=== PATIENT | female | born 1950 | race Caucasian/White ===

== ENCOUNTER → 2016-09-20 | Outpatient (REF) | payer MEDICARE ==
[2016-09-20 13:11] LABS: ALBUMIN 3.8 GM/DL (3.2-5.2); ALBUMIN/GLOBULIN RATIO 1.36 (1.00-1.93); ALKALINE PHOSPHATASE 131 U/L (45-117); ALT/SGPT 22 U/L (12-78); ANION GAP 7 MEQ/L (8-16); AST/SGOT 12 U/L (15-37); BILIRUBIN,TOTAL 0.4 MG/DL (0.2-1.0); BLOOD UREA NITROGEN 13 MG/DL (7-18); CALCIUM LEVEL 9.2 MG/DL (8.8-10.2); CARBON DIOXIDE LEVEL 31 MEQ/L (21-32); CHLORIDE LEVEL 105 MEQ/L (98-107); CHOLESTEROL LEVEL 257 MG/DL (<200); GLOMERULAR FILTRATION RATE > 60.0 (>45); GLUCOSE, FASTING 115 MG/DL (80-110); POTASSIUM SERUM 4.6 MEQ/L (3.5-5.1); SODIUM LEVEL 143 MEQ/L (136-145); TOTAL PROTEIN 6.6 GM/DL (6.4-8.2); TRIGLYCERIDES LEVEL 188 MG/DL (<150)
== END ==
LOC: M SFHCADAM 08:53
PROVIDERS: ATTEND Physician Assistant Medical
DX: E78.5 Hyperlipidemia, unspecified (principal); R73.01 Impaired fasting glucose

== ENCOUNTER → 2016-09-26 | Outpatient (CLI) | payer MEDICARE ==
--- NOTE | 2016-09-26 14:57 | REP ---
Clinical: Chronic knee pain. Technique: AP and lateral. Findings: Moderate to early advanced tricompartmental osteoarthritic degenerative changes are appreciated. No obvious effusion. No acute fracture or dislocation. Impression: Moderate to early advanced tricompartmental osteoarthritic changes. Signed by Vick Harper MD 09/26/2016 02:49 P
== END ==
LOC: M ADAMS 13:54
PROVIDERS: ATTEND Physician Assistant Medical
DX: M25.561 Pain in right knee (principal); M17.11 Unilateral primary osteoarthritis, right knee

== ENCOUNTER → 2016-10-26 | Outpatient (REF) | payer MEDICARE ==
[2016-10-26 14:17] LABS: BLOOD UREA NITROGEN 13 MG/DL (7-18); GLOMERULAR FILTRATION RATE > 60.0 (>45)
== END ==
LOC: M LABDRAW1 13:36
PROVIDERS: ATTEND Physician Assistant Surgical
DX: M17.11 Unilateral primary osteoarthritis, right knee (principal)

== ENCOUNTER → 2018-01-22 | Outpatient (REF) | payer MEDICARE ==
[2018-01-22 12:17] LABS: BASO # 0.1 10^3/uL (0.0-0.2); BASO % 1.4 % (0.0-1.0); EOS # 0.2 10^3/uL (0.0-0.50); EOS % 3.3 % (0.0-3.0); HEMATOCRIT 39.6 % (36.0-47.0); HEMOGLOBIN 12.7 g/dl (12.0-15.5); IMMATURE GRANULOCYTE % 0.5 % (0-3.0); LYMPH # 1.3 10^3/uL (1.5-4.5); LYMPH % 20.9 % (24.0-44.0); MEAN CORPUSCULAR HEMOGLOBIN 27.7 pg (27.0-33.0); MEAN CORPUSCULAR HGB CONC 32.1 g/dl (32.0-36.5); MEAN CORPUSCULAR VOLUME 86.5 fl (80.0-96.0); MONO # 0.6 10^3/uL (0.0-0.8); MONO % 9.4 % (0.0-5.0); NEUTROPHILS # 4.1 10^3/uL (1.8-7.7); NEUTROPHILS % 64.5 % (36.0-66.0); PLATELET COUNT, AUTOMATED 295 10^3/uL (150-450); RED BLOOD COUNT 4.58 10^6/uL (4.00-5.40); RED CELL DISTRIBUTION WIDTH 14.5 % (11.5-14.5); WHITE BLOOD COUNT 6.3 10^3/uL (4.0-10.0)
[2018-01-22 12:58] LABS: TOTAL 25(OH) VITAMIN D 44.1 NG/ML (30.0-100.0)
[2018-01-22 13:18] LABS: ALBUMIN 3.7 GM/DL (3.2-5.2); ALBUMIN/GLOBULIN RATIO 1.16 (1.00-1.93); ALKALINE PHOSPHATASE 143 U/L (45-117); ALT/SGPT 25 U/L (12-78); ANION GAP 8 MEQ/L (8-16); AST/SGOT 15 U/L (7-37); BILIRUBIN,TOTAL 0.4 MG/DL (0.2-1.0); BLOOD UREA NITROGEN 12 MG/DL (7-18); CARBON DIOXIDE LEVEL 28 MEQ/L (21-32); CHLORIDE LEVEL 106 MEQ/L (98-107); CHOLESTEROL LEVEL 189 MG/DL (<200); CREATININE FOR GFR 0.77 MG/DL (0.55-1.30); GLOMERULAR FILTRATION RATE > 60.0 (>45); GLUCOSE, FASTING 109 MG/DL (70-100); HDL CHOLESTEROL 45 MG/DL (>40); LDL CHOLESTEROL 102.8 MG/DL (<100); NON-HDL-C 144 MG/DL; POTASSIUM SERUM 4.3 MEQ/L (3.5-5.1); SODIUM LEVEL 142 MEQ/L (136-145); TOTAL PROTEIN 6.9 GM/DL (6.4-8.2); TRIGLYCERIDES LEVEL 206 MG/DL (<150)
== END ==
LOC: M SFHCADAM 08:51
DX: E78.5 Hyperlipidemia, unspecified (principal); R73.01 Impaired fasting glucose
CPT/HCPCS: 84443

== ENCOUNTER → 2018-02-11 | Outpatient (REF) | payer MEDICARE | LOC: M SFHCLERA 02-12 12:23 | DX: C44.519 Basal cell carcinoma of skin of other part of trunk (principal) | CPT/HCPCS: 88305 ==

== ENCOUNTER → 2019-02-11 | Outpatient (REF) | payer MEDICARE ==
[2019-02-11 19:26] LABS: BASO # 0.1 10^3/uL (0.0-0.2); BASO % 0.7 % (0.0-1.0); EOS # 0.1 10^3/uL (0.0-0.50); EOS % 1.7 % (0.0-3.0); HEMOGLOBIN 13.7 g/dl (12.0-15.5); LYMPH # 1.5 10^3/uL (1.5-4.5); LYMPH % 17.9 % (24.0-44.0); MEAN CORPUSCULAR HGB CONC 31.9 g/dl (32.0-36.5); MEAN CORPUSCULAR VOLUME 94.3 fl (80.0-96.0); MONO # 0.8 10^3/uL (0.0-0.8); MONO % 9.3 % (0.0-5.0); NEUTROPHILS # 5.8 10^3/uL (1.8-7.7); PLATELET COUNT, AUTOMATED 255 10^3/uL (150-450); RED BLOOD COUNT 4.56 10^6/uL (4.00-5.40); WHITE BLOOD COUNT 8.3 10^3/uL (4.0-10.0)
[2019-02-11 19:36] LABS: ALBUMIN 3.7 GM/DL (3.2-5.2); ALT/SGPT 25 U/L (12-78); BILIRUBIN,TOTAL 0.3 MG/DL (0.2-1.0); BLOOD UREA NITROGEN 16 MG/DL (7-18); CARBON DIOXIDE LEVEL 29 MEQ/L (21-32); CHLORIDE LEVEL 110 MEQ/L (98-107); CHOLESTEROL LEVEL 182 MG/DL (<200); CHOLESTEROL RISK RATIO 3.872 (<5); CREATININE FOR GFR 0.73 MG/DL (0.55-1.30); GLOMERULAR FILTRATION RATE > 60.0 (>45); GLUCOSE, FASTING 83 MG/DL (70-100); HDL CHOLESTEROL 47 MG/DL (>40); LDL CHOLESTEROL 110 MG/DL (<100); NON-HDL-C 135 MG/DL; POTASSIUM SERUM 4.5 MEQ/L (3.5-5.1); SODIUM LEVEL 143 MEQ/L (136-145); TOTAL PROTEIN 6.6 GM/DL (6.4-8.2); TRIGLYCERIDES LEVEL 127 MG/DL (<150)
[2019-02-11 19:58] LABS: HEMOGLOBIN A1c 6.2 %
[2019-02-11 20:07] LABS: MALB URINE SIEMENS 10.4 MG/L; MAU/CREAT RATIO 7.1 MCG/MG (0.0-30.0)
== END ==
LOC: M SFHCADAM 16:31
PROVIDERS: ATTEND Physician Assistant Medical
DX: E78.5 Hyperlipidemia, unspecified (principal); R73.01 Impaired fasting glucose; E66.01 Morbid (severe) obesity due to excess calories; M81.0 Age-related osteoporosis without current pathological fracture

== ENCOUNTER → 2020-02-27 | Outpatient (REF) | payer MEDICARE ==
[~2020-02-27] MED LIST: ATOR1TAB19 PO; COLLAGEN PO; CVS1CHW13 PO; D31000TA2 PO; ECOT81TA5 PO; MULTTAB86 PO
[2020-02-27 14:48] LABS: BASO # 0.1 10^3/uL (0.0-0.2); BASO % 0.9 % (0.0-1.0); EOS # 0.2 10^3/uL (0.0-0.5); EOS % 3.1 % (0.0-3.0); HEMATOCRIT 41.7 % (36.0-47.0); HEMOGLOBIN 13.5 g/dl (12.0-15.5); LYMPH # 1.1 10^3/uL (1.5-5.0); LYMPH % 20.4 % (24.0-44.0); MEAN CORPUSCULAR HEMOGLOBIN 29.1 pg (27.0-33.0); MEAN CORPUSCULAR HGB CONC 32.4 g/dl (32.0-36.5); MEAN CORPUSCULAR VOLUME 89.9 fl (80.0-96.0); MONO # 0.6 10^3/uL (0.0-0.8); NEUTROPHILS # 3.6 10^3/uL (1.5-8.5); NEUTROPHILS % 65.1 % (36.0-66.0); PLATELET COUNT, AUTOMATED 234 10^3/uL (150-450); RED BLOOD COUNT 4.64 10^6/uL (4.00-5.40); WHITE BLOOD COUNT 5.5 10^3/uL (4.0-10.0)
[2020-02-27 15:08] LABS: BLOOD UREA NITROGEN 14 MG/DL (7-18); CARBON DIOXIDE LEVEL 30 MEQ/L (21-32); CHLORIDE LEVEL 105 MEQ/L (98-107); CREATININE FOR GFR 0.72 MG/DL (0.55-1.30); GLOMERULAR FILTRATION RATE > 60.0 (>45); GLUCOSE, FASTING 105 MG/DL (70-100); POTASSIUM SERUM 4.2 MEQ/L (3.5-5.1); SODIUM LEVEL 140 MEQ/L (136-145)
[2020-02-27 15:09] LABS: ALBUMIN 3.7 GM/DL (3.2-5.2); ALT/SGPT 26 U/L (12-78); BILIRUBIN,TOTAL 0.5 MG/DL (0.2-1.0); CALCIUM LEVEL 9.2 MG/DL (8.8-10.2); CHOLESTEROL LEVEL 193 MG/DL (<200); CHOLESTEROL RISK RATIO 4.386 (<5); HDL CHOLESTEROL 44 MG/DL (>40); LDL CHOLESTEROL 113 MG/DL (<100); NON-HDL-C 149 MG/DL; TOTAL PROTEIN 6.5 GM/DL (6.4-8.2); TRIGLYCERIDES LEVEL 178 MG/DL (<150)
[2020-02-27 16:46] LABS: HEMOGLOBIN A1c 6.2 %
== END ==
LOC: M LABDRWAD 12:46
PROVIDERS: ATTEND Physician Assistant Medical
DX: E78.5 Hyperlipidemia, unspecified (principal); M19.90 Unspecified osteoarthritis, unspecified site; R73.09 Other abnormal glucose; E66.01 Morbid (severe) obesity due to excess calories
CPT/HCPCS: 36415; 80053; 80061; 83036; 84443; 85025; G0463

== ENCOUNTER → 2020-03-10 | Outpatient (CLI) | payer MEDICARE ==
--- NOTE | 2020-03-10 10:25 | REPMRS ---
Patient History The patient states she has not had a clinical breast exam in over a year. Family history of ovarian cancer at age 63 in daughter. 3D TOMOSYNTHESIS WAS PERFORMED. [facility] lifetime risk for breast cancer is 2.2%. VOLPARA DENSITY B. Digital Woman Screen Mammo: March 10, 2020 - Exam #: [id number] Bilateral CC and MLO view(s) were taken. Technologist: RT Jil Prior study comparison: February 25, 2018, bilateral digital woman screen mammo performed at [facility]. January 31, 2016, left breast digital mammo diagnostic unilateral, performed at [facility]. FINDINGS: There are scattered fibroglandular densities. There is a fairly symmetric fibroglandular pattern in both breasts. There has been no interval development of masses, areas of architectural distortion or clusters of microcalcifications typical of malignancy. The previously identified cyst in the left breast is again noted. Assessment: BI-RADS/ACR category 2 mammogram. Benign Findings. Recommendation Routine screening mammogram of both breasts in 1 year (for women over age 40). This mammogram was interpreted with the aid of an FDA-approved computer-aided dectection system. Electronically Signed By: Jean Price MD 03/10/20 3101
== END ==
LOC: M WHC 09:12
PROVIDERS: ATTEND Physician Assistant Medical
DX: Z12.31 Encounter for screening mammogram for malignant neoplasm of breast (principal)

== ENCOUNTER → 2020-05-04 | Outpatient (CLI) | payer MEDICARE ==
[2020-05-04 09:53] LABS: HEMATOCRIT 42.2 % (36.0-47.0); HEMOGLOBIN 13.1 g/dl (12.0-15.5); MEAN CORPUSCULAR HEMOGLOBIN 28.1 pg (27.0-33.0); MEAN CORPUSCULAR VOLUME 90.6 fl (80.0-96.0); PLATELET COUNT, AUTOMATED 288 10^3/uL (150-450); RED BLOOD COUNT 4.66 10^6/uL (4.00-5.40); WHITE BLOOD COUNT 6.4 10^3/uL (4.0-10.0)
--- NOTE | 2020-05-04 10:10 | REP ---
INDICATION: RT KNEE OSTEOARTHRITIS LABS FIRST. COMPARISON: None. TECHNIQUE: Two views FINDINGS: Lung glynn are adequately inflated. There is some linear scar or platelike atelectasis at the left CP angle on the frontal view. I see no pleural effusion, lateral pleural thickening, dense consolidation or pulmonary nodule. No visible mass. The heart is not enlarged and there is no vascular redistribution or edema. The aorta is mildly tortuous but normal for age. Airway is intact. No widening of the mediastinum. Bony thorax shows small marginal osteophytes in the lower thoracic spine but no compression fracture or destructive lesions in the spine and adjacent bony chest structures. No free air under the diaphragm IMPRESSION: Some minimal linear atelectasis or scar left CP angle. No cardiomegaly, edema, effusion or acute infiltrate <Electronically signed by Dalton Neely > 05/04/20 1004
[2020-05-04 10:16] LABS: INR 0.88; PROTHROMBIN TIME 12.1 SECONDS (12.5-14.3)
[2020-05-04 10:26] LABS: ALBUMIN 3.7 GM/DL (3.2-5.2); ALT/SGPT 22 U/L (12-78); BILIRUBIN,TOTAL 0.4 MG/DL (0.2-1.0); BLOOD UREA NITROGEN 12 MG/DL (7-18); CARBON DIOXIDE LEVEL 30 MEQ/L (21-32); CHLORIDE LEVEL 107 MEQ/L (98-107); CREATININE FOR GFR 0.78 MG/DL (0.55-1.30); GLOMERULAR FILTRATION RATE > 60.0 (>45); GLUCOSE, FASTING 116 MG/DL (70-100); POTASSIUM SERUM 4.2 MEQ/L (3.5-5.1); SODIUM LEVEL 142 MEQ/L (136-145); TOTAL PROTEIN 6.5 GM/DL (6.4-8.2)
[2020-05-04 10:27] LABS: ERYTHROCYTE SEDIMENTATION RATE 17 mm/hr (0-30)
--- NOTE | 2020-05-04 14:09 | ECGEPIP ---
[facility] Test Date: 2020-05-04 Pat Name: CL BARAJAS Department: Room: - Gender: Female Card Hanger: : 1950 Requested By: Scarlett Rucker Order Number: [id number] Reading MD: Jaron Jones Measurements Intervals [place] Rate: 78 P: 68 VT: 165 QRS: 7 QRSD: 84 T: 70 QT: 361 QTc: 412 Interpretive Statements SINUS RHYTHM Inferior Q waves of uncertain significance Comparison tracing not on file Baseline artifact Electronically Signed on 05-04-2020 14:09:30 EST by Jaron Jones
== END ==
LOC: M LAB 09:06
PROVIDERS: ATTEND Orthopaedic Surgery
DX: Z01.818 Encounter for other preprocedural examination (principal); M17.11 Unilateral primary osteoarthritis, right knee

== ENCOUNTER → 2020-05-14 | Outpatient (CLI) | payer MEDICARE | LOC: M LABSMTC 10:25 | PROVIDERS: ATTEND Anesthesiology | DX: Z01.812 Encounter for preprocedural laboratory examination (principal); Z20.828 Contact with and (suspected) exposure to other viral communicable diseases ==

== ENCOUNTER 2020-05-19 11:01 | Day surgery (SDC) | payer MEDICARE ==
--- NOTE | 2020-05-17 08:08 | HPE ---
DATE OF ANTICIPATED ADMISSION: 05/19/2020 PHYSICIAN: Dr. Chaim Arellano CHIEF COMPLAINT: Right knee pain. HISTORY OF PRESENT ILLNESS: The patient is a pleasant 70-year-old female with progressively worsening right knee pain and stiffness. She has failed to improve with conservative treatment. She has elected for surgery for her continued symptoms. She has pain with weightbearing activities and her activities of daily living. X-rays of her knee are notable for advanced osteoarthritis of the right knee joint. She is consented for a right total knee arthroplasty by Dr. Chaim Arellano. Medical optimization was performed by Dr. Chan office. ALLERGIES: None. CURRENT MEDICATIONS: - atorvastatin 20 mg once a day. - Tylenol 325 mg as needed. - baby aspirin once a day. - calcium and citrate D, fish oil, and vitamin D supplement. PAST MEDICAL HISTORY: High cholesterol. PAST SURGICAL HISTORY: 1. Knee arthroscopy. 2. Hysterectomy. SOCIAL HISTORY: She is retired. Has two drinks a day and quit smoking 20 years ago. FAMILY HISTORY: Non-contributory. REVIEW OF SYSTEMS: This patient denies chest pain, heart palpitations, cough, wheezing, difficulty breathing, and shortness of breath. She denies abdominal pain, nausea, vomiting, diarrhea, or constipation. She denies recent upper respiratory infection or urinary tract infection symptoms. She does complain of persistent pain in her right knee. PHYSICAL EXAMINATION: GENERAL: She is a well-nourished, well-developed, and in no acute distress alert female patient. She ambulates with a moderate limp favoring her right lower extremity. She is not using assistive devices. VITAL SIGNS: She is 5 feet 2 inches, weight 191.8 pounds, temperature 97.2, blood pressure 136/84, pulse 78, respirations 16. NECK: Supple without adenopathy or jugular venous distention. There were no carotid bruits appreciated upon auscultation. LUNGS: Clear to auscultation without rales or wheeze throughout. HEART: Regular rate and rhythm. ABDOMEN: Bowel sounds were present. EXTREMITIES: Examination of the knee revealed intact skin. She had decreased range of motion due to pain and stiffness. The limb is neurovascularly intact. LABORATORY DATA: ProTime 12.1. INR 0.88. Glucose 116, BUN 12, creatinine 0.78. Sodium 142, potassium 4.2. CBC showed mean corpuscular hemoglobin concentration of 31 and otherwise within normal limits with a sed rate of 17. IMAGING: Chest x-ray and EKG were not available. IMPRESSION: Symptomatic osteoarthritis of the right knee joint. PLAN: Consented for a right total knee arthroplasty by Dr. Chaim Arellano pending chest x-ray and EKG. MTDD
[~2020-05-19] VITALS: Ht 157.5 cm; Wt 89.4 kg
[~2020-05-19 11:01] MED LIST changes: +ACETAMINOPHEN 500 MG TAB PO ONE; +LR 1,000 ML IV ONE; +MIDAZOLAM INJ 2MG/2ML VIAL (J2250 PER 1MG) IV PRN; +ceFAZolin SOD 2 GM in IV 1 EA IV ONE; +fentaNYL 100 MCG/2 ML INJECTION (J3010) IV PRN
[2020-05-19] MEDS ORDERED: TRANEXAMIC ACID 100 MG/ML 10ML VIAL As Ordered ONE (12:29)
[2020-05-19] MEDS ORDERED: BUPIVACAINE HCL 0.25% 10ML VIAL As Ordered ONE (12:29)
[2020-05-19] MEDS ORDERED: ceFAZolin 1GM VIAL (J0690 PER 500MG) As Ordered ONE (12:29)
[2020-05-19] MEDS ORDERED: BUPIVACAINE LIPOSOME/PF 1.3% 20ML VIAL (13.3MG/ML)(EXPAREL)(C9290 PER1MG) As Ordered ONE (12:30)
[2020-05-19] MEDS ORDERED: EPINEPHrine INJ 1 MG/ML 1ML AMP As Ordered ONE (12:30)
[2020-05-19] MEDS ORDERED: MIDAZOLAM INJ 2MG/2ML VIAL (J2250 PER 1MG) As Ordered ONE ×2 (12:53→13:25)
[2020-05-19] MEDS ORDERED: fentaNYL 100 MCG/2 ML INJECTION (J3010) As Ordered ONE ×2 (12:54→13:25)
[2020-05-19] MEDS ORDERED: LIDOCAINE 2% 100MG/5ML SDV (FOR ANES.) As Ordered ONE (12:57)
[2020-05-19] MEDS ORDERED: dexameTHASONE 4 MG/ML 1ML VIAL (J1100 PER 1MG) As Ordered ONE ×2 (12:58→13:31)
[2020-05-19] MEDS ORDERED: propofoL 500 MG/50 ML VIAL As Ordered ONE (12:59)
[2020-05-19] MEDS ORDERED: ROPIvacaine 0.5% 30ML INJECTION (J2795 PER 1MG) XX ONE (14:15)
[2020-05-19] MEDS ORDERED: LIDOCAINE 1% MDV 20ML VIAL XX ONE (14:15)
[2020-05-19] MEDS ORDERED: dexameTHASONE 10MG/1ML VIAL PRES.FREE (J1100 PER 1MG) XX ONE (14:15)
[2020-05-19] MEDS ORDERED: METOCLOPRAMIDE INJ 10MG/2ML VIAL (J2765 PER 1) As Ordered ONE (14:41)
[2020-05-19] MEDS ORDERED: ONDANSETRON 4MG/2ML VIAL As Ordered ONE (14:41)
[2020-05-19] MEDS ORDERED: propofoL 200 MG/20 ML VIAL As Ordered ONE (15:24)
[2020-05-19] MEDS ORDERED: ONDANSETRON 4MG/2ML VIAL IV PRN ×2 (16:15)
[2020-05-19] MEDS ORDERED: oxyCODONE 5MG TAB PO PRN (16:15)
[2020-05-19] MEDS ORDERED: HYDROMORPHONE HCL 0.5 MG/ 0.5 ML SYRINGE (J1170 PER 1) IV PRN (16:15)
[2020-05-19] MEDS ORDERED: ACETAMINOPHEN TAB 650MG DOSE (2X325MG) PO PRN (16:15)
[2020-05-19] MEDS ORDERED: fentaNYL 100 MCG/2 ML INJECTION (J3010) IV PRN (16:15)
[2020-05-19] MEDS ORDERED: MORPHINE 4 MG/ML 1ML VIAL/SYRINGE (J2270) IV PRN (16:15)
[2020-05-19] MEDS ORDERED: LR 1,000 ML IV SCH ×2 (16:15)
[2020-05-19] MEDS ORDERED: PERCOCET 5MG/325MG TAB PO PRN (16:15)
--- NOTE | 2020-05-19 16:52 | REP ---
INDICATION: POST OP COMPARISON: None. TECHNIQUE: Portable AP and lateral views obtained. FINDINGS: There is placement of a total knee prosthesis which appears to be in good position. The osseous structures are intact and well aligned. Metallic skin abbey are seen anteriorly. IMPRESSION: Metallic knee prosthesis in good position. <Electronically signed by Jean Price > 05/19/20 [id number]
[2020-05-19 18:15] VITALS: BP 156/81
[2020-05-19] MEDS ORDERED: PROMETHAZINE INJ 25 MG/ML VIAL (J2550) IV SCH (18:15)
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
[2020-05-19 18:45] VITALS: BP 155/84
[2020-05-19] MEDS ORDERED: MORPHINE 2 MG/ML 1ML VIAL (J2270) IV PRN (18:45)
[2020-05-19] MEDS ORDERED: PROMETHAZINE INJ 25 MG/ML VIAL (J2550) IV ONE (18:45)
[2020-05-19] MEDS: ASPIRIN 81 MG ENTERIC TAB PO SCH (20:05)
[2020-05-19 20:45] VITALS: BP 145/84
[2020-05-19 22:00] VITALS: BP 142/81
[2020-05-19] MEDS: ceFAZolin SOD 2 GM in IV 1 EA IV SCH (22:10)
[2020-05-20 00:07] VITALS: O2SAT 96
[2020-05-20 02:00] VITALS: BP 148/72
[2020-05-20] MEDS: PERCOCET 5MG/325MG TAB PO PRN ×3 (02:37→15:55)
[2020-05-20 06:00] VITALS: BP 159/86
[2020-05-20 06:01] LABS: HEMATOCRIT 35.9 % (36.0-47.0); HEMOGLOBIN 11.4 g/dl (12.0-15.5); MEAN CORPUSCULAR HEMOGLOBIN 28.4 pg (27.0-33.0); MEAN CORPUSCULAR HGB CONC 31.8 g/dl (32.0-36.5); MEAN CORPUSCULAR VOLUME 89.3 fl (80.0-96.0); PLATELET COUNT, AUTOMATED 262 10^3/uL (150-450); RED BLOOD COUNT 4.02 10^6/uL (4.00-5.40); WHITE BLOOD COUNT 15.8 10^3/uL (4.0-10.0)
[2020-05-20] MEDS: ceFAZolin SOD 2 GM in IV 1 EA IV SCH ×2 (06:09→14:34)
[2020-05-20 06:24] LABS: ALT/SGPT 24 U/L (12-78); BILIRUBIN,TOTAL 0.3 MG/DL (0.2-1.0); BLOOD UREA NITROGEN 15 MG/DL (7-18); CALCIUM LEVEL 8.6 MG/DL (8.8-10.2); CARBON DIOXIDE LEVEL 27 MEQ/L (21-32); CHLORIDE LEVEL 105 MEQ/L (98-107); CREATININE FOR GFR 0.82 MG/DL (0.55-1.30); GLOMERULAR FILTRATION RATE > 60.0 (>45); GLUCOSE, FASTING 188 MG/DL (70-100); POTASSIUM SERUM 4.2 MEQ/L (3.5-5.1); SODIUM LEVEL 138 MEQ/L (136-145); TOTAL PROTEIN 5.7 GM/DL (6.4-8.2)
[2020-05-20] MEDS ORDERED: PERC5TAB12 PO (06:43)
[2020-05-20] MEDS ORDERED: ECOT81TA5 PO (06:43)
--- NOTE | 2020-05-20 07:05 | RO ---
DATE OF OPERATION: 05/19/2020 PREOPERATIVE DIAGNOSIS: Right knee varus tricompartmental degenerative arthritis. POSTOPERATIVE DIAGNOSIS: Right knee varus tricompartmental degenerative arthritis. PROCEDURE: Right total knee arthroplasty using a size 6 narrow cemented cruciate-retaining femoral component with a size 6 tibial tray cemented with a 6 mm rotating platform, polyethylene insert and 35 mm polyethylene button. All components were cemented. Prosthesis was made by [employer]. It was an Attune knee. SURGEON: Chaim Arellano MD WAITER/WAITRESS FIRST CLASS: Ms. Susan Norman ANESTHESIA: Spinal with right femoral nerve block. COMPLICATIONS: None. ESTIMATED BLOOD LOSS: 20 cc SPECIMENS: Joint surface. PROCEDURE: Antibiotics were given intravenously preoperatively and a right femoral nerve block and then a spinal anesthetic was induced, and tourniquet placed in the right upper thigh and not inflated. Right lower extremity was carefully prepped and draped in the usual sterile fashion and then the leg was elevated. After appropriate time-out, the tourniquet was inflated to 250 mmHg for 59 minutes. A medial parapatellar arthrotomy was performed. Bovie cautery was used to coagulate crossing vessels. Subperiosteal dissection on the proximal medial and the proximal lateral tibial plateaus was performed and then we everted the patella and flexed the knee, and dbrided the ACL. The drill was placed down the center of the femoral canal followed by intermedullary margarita. The distal femoral cutting jig was set at 5 degrees of valgus at 9 mm resection level. The block was pinned into position. The distal femoral cut was performed. AP sizing jig measured for a size 6 femoral component. Three degrees of external rotation were dialed in and then the pins were applied and the 4 in 1 block applied in the anterior and posterior chamfer cuts were performed taking great care to protect the surrounding soft tissues. The sulcus osteotomy jig was applied and the sulcus osteotomy performed and checked with the rasp. We exposed the proximal tibia, used the extramedullary jig to estimate being parallel to the mechanical access of the tibia referencing first off the medial tibial condyle which was quite eroded. We measured it 2 mm from that level. The block was pinned into position. A secondary check with extramedullary margarita confirmed that we appeared to be parallel to the mechanical axis. We thus performed the proximal tibial osteotomy. he lamina sewer bricklayer was then placed medially and we performed a completion medial meniscectomy and dbrided posterior medial osteophytes. We then placed the lamina sewer bricklayer laterally and performed a completion medial meniscectomy and dbrided the posterior medial osteophytes. Once that had been concluded, the spacer block was trialed. The 6 mm spacer actually fit quite nicely with good symmetry with varus and valgus and AP stress testing both in flexion and in extension but it was slightly snug, so I did go back and make sure I removed all the osteophytes medially and I did put the tibial block back on and ran the saw blade over the medial tibial condyle once again. It did take a lot of kerf of saw blades worth of bone from this area because it was so sclerotic initially and may have scythed somewhat. I placed the spacer block in at this point and a 6 mm spacer still fit nicely but it was definitely less tight medially and I felt quite satisfied with the overall alignment at this point. I then exposed the proximal tibia size for a size number 6 tibial tray. It was pinned into position followed by the reamer and broach and a trial of polyethylene was placed. Then the trial femoral component was applied. I brought the knee into extension, everted the patella, performed a patellar osteotomy sized for a 35 patellar component. Level was drilled, trial placed. Patellar femoral tracking was anatomic. There was a little bit of tendency for some posterior roll block at extreme flexion. I did release a little bit of the PCL with a Bovie and a small lopez elevator. I drilled the lug holes for the femur at this point, removed all the trial components. Marija Susan Emerson mixed cement on the back table as I copiously pulsatile lavaged and irrigated out the knee joint and prepared the bony surfaces for cementing as well as applied Exparel to the distal femur, periosteal tissues, and the proximal tibial periosteal tissues. Susan Emerson was also critical to the success of this difficult procedure by helping with appropriate soft tissue manipulation, appropriate flexion and extension of the knee as needed to allow me to perform the operation smoothly, efficiently and safely, helped close the wound, helped prepare the patient amongst many other tasks. Once all the bony surfaces were thoroughly dried, I cemented the tibial tray, removed excess cement and then cemented the femoral component and removed all excess cement, and placed the polyethylene, brought the knee into extension, everted the patella, cemented the patellar button and held it with a clamp with the knee full in extension and then removed excess cement. We held this position until the cement hardened and as we were awaiting this, we irrigated out the knee joint once again, then placed tranexamic acid in the depths of the wound. We checked the notch to make sure no bony cement extruded through the notch. We then closed the apex of the arthrotomy with two #1 PDS sutures. The medial parapatellar area was closed with a #1 PDS suture and then the arthrotomy was closed with a running double arm #1 STRATAFIX, irrigating again. Then we let the tourniquet down, then irrigated the subdermal tissues and closed the deep subdermal tissues with interrupted 2,0 PDS sutures and the skin was closed with abbey, covered by an Optifoam and dry sterile bulky dressing. She was then transferred to the recovery room in stable condition. There were no intraoperative complications MTDD
[2020-05-20] MEDS ORDERED: MIRALAX *UNIT DOSE* 17GM PACKET PO SCH (09:00)
[2020-05-20] MEDS ORDERED: MOM 30ML SUSPENSION UDC PO SCH (09:00)
[2020-05-20] MEDS ORDERED: ATORVASTATIN 10 MG TAB PO SCH (09:00)
[2020-05-20] MEDS ORDERED: VITAMIN D 1,000 INTERNATIONAL UNITS TABLET PO SCH (09:00)
[2020-05-20] MEDS: ASPIRIN 81 MG ENTERIC TAB PO SCH (09:23)
[2020-05-20 09:30] VITALS: O2SAT 98
[2020-05-20 14:00] VITALS: BP 175/98
== END 2020-05-20 16:09 | disposition home or self-care (01) ==
LOC: M SDC 11:01 → EDSTATUS 15:10 → M MS5PR 18:05 → M SDC 18:05 → M MS5PR 18:27 → M SDC 18:27
PROVIDERS: ATTEND Orthopaedic Surgery
DX: M17.11 Unilateral primary osteoarthritis, right knee (principal); K21.9 Gastro-esophageal reflux disease without esophagitis; R01.1 Cardiac murmur, unspecified; R06.83 Snoring; R32 Unspecified urinary incontinence; Z79.82 Long term (current) use of aspirin; Z87.891 Personal history of nicotine dependence; Z90.710 Acquired absence of both cervix and uterus; Z85.43 Personal history of malignant neoplasm of ovary
CPT/HCPCS: 27447; 36415; 64447; 73560; 80053; 85027; 86850; 86900; 86901; 88304; 88311; 96365; 96366; 96375; 97110; 97116; 97161; C1713; C1776; C9290; G0378; J0171; J0690; J1100; J2250; J2270; J2405; J2765; J3010

== ENCOUNTER → 2020-09-27 | Outpatient (REF) | payer MEDICARE ==
[~2020-09-27] MED LIST changes: -ACETAMINOPHEN 500 MG TAB PO ONE; -LR 1,000 ML IV ONE; -MIDAZOLAM INJ 2MG/2ML VIAL (J2250 PER 1MG) IV PRN; +PERC5TAB12 PO; -ceFAZolin SOD 2 GM in IV 1 EA IV ONE; -fentaNYL 100 MCG/2 ML INJECTION (J3010) IV PRN
[2020-09-27 12:51] LABS: BASO # 0.1 10^3/uL (0.0-0.2); BASO % 0.7 % (0.0-1.0); EOS # 0.3 10^3/uL (0.0-0.5); EOS % 3.9 % (0.0-3.0); HEMATOCRIT 42.3 % (36.0-47.0); HEMOGLOBIN 13.2 g/dl (12.0-15.5); LYMPH # 1.6 10^3/uL (1.5-5.0); LYMPH % 23.3 % (24.0-44.0); MEAN CORPUSCULAR HEMOGLOBIN 28.2 pg (27.0-33.0); MEAN CORPUSCULAR HGB CONC 31.2 g/dl (32.0-36.5); MEAN CORPUSCULAR VOLUME 90.4 fl (80.0-96.0); MONO # 0.6 10^3/uL (0.0-0.8); MONO % 8.9 % (2.0-8.0); NEUTROPHILS # 4.3 10^3/uL (1.5-8.5); NEUTROPHILS % 62.5 % (36.0-66.0); PLATELET COUNT, AUTOMATED 285 10^3/uL (150-450); RED BLOOD COUNT 4.68 10^6/uL (4.00-5.40)
[2020-09-27 13:36] LABS: MALB URINE SIEMENS 18.2 MG/L; MAU/CREAT RATIO 13.6 MCG/MG (0.0-30.0)
[2020-09-27 13:49] LABS: CHOLESTEROL RISK RATIO 3.958 (<5); THYROID STIMULATING HORMONE 3.03 uIU/ML (0.358-3.740); TOTAL 25(OH) VITAMIN D 34.6 NG/ML (30.0-100.0)
== END ==
LOC: M SFHCADAM 08:31
PROVIDERS: ATTEND Physician Assistant Medical
DX: Z00.00 Encounter for general adult medical examination without abnormal findings (principal); M81.0 Age-related osteoporosis without current pathological fracture; R73.01 Impaired fasting glucose; E66.01 Morbid (severe) obesity due to excess calories

== ENCOUNTER → 2021-03-14 | Outpatient (CLI) | payer MEDICARE ==
--- NOTE | 2021-03-14 13:37 | REP ---
INDICATION: BREAST SCREENING. COMPARISON: Multiple TECHNIQUE: Digital screening mammography was cardio bilaterally in the CC and MLO projections using both 2D and 3D modalities and compared to the prior exams. By history, the patient has no complaints of a palpable breast abnormality or other significant breast complaints. FINDINGS: There are no dong soft tissue densities or spiculated masses. There is no internal architectural distortion. There are no suspicious calcifications. Stable benign calcifications are again seen bilaterally. The well no nodular density seen in the left breast somewhat centrally although has not changed significantly may have gotten slightly larger mammographically. The Volpara volumetric breast density pattern is b. IMPRESSION: BIRADS/ACR category 0 mammogram. The well-known nodular density seen mammographically in the left breast and being confirmed as a cyst on prior ultrasound may have gotten slightly larger. To ensure total stability and to rule out the possibility of a newly developed intracystic nodule I would recommend left breast ultrasound so it can be compared to the prior breast ultrasound of 01/31/2016. This patient's Tyrer-Cuzick lifetime breast cancer risk assessment score is 2.1%. This mammogram was interpreted with the aid of an FDA-approved computer-aided detection system. The patient states she had a clinical breast exam in over a year. The patient letter being requested is M0. RECOMMENDATION: As above <Electronically signed by Gerard Lim > 03/14/21 [id number]
== END ==
LOC: M WHC 12:24
PROVIDERS: ATTEND Physician Assistant Medical
DX: Z12.31 Encounter for screening mammogram for malignant neoplasm of breast (principal); R92.1 Mammographic calcification found on diagnostic imaging of breast; N60.02 Solitary cyst of left breast; R92.8 Other abnormal and inconclusive findings on diagnostic imaging of breast

== ENCOUNTER → 2021-04-15 | Outpatient (CLI) | payer MEDICARE ==
--- NOTE | 2021-04-15 16:07 | REP ---
INDICATION: LEFT BREAST ADD VIEWS. COMPARISON: Mammogram 03/14/2021 as well as other prior exams. TECHNIQUE: Real-time sonographic evaluation of left breast performed. FINDINGS: The known cyst in the 11 o'clock region of the left breast is well visualized. No internal echoes or nodules are seen within the cyst. This cyst is oval and lobulated. Average KP a value with elastography interrogation is 8. It measures approximately 2.1 x 0.8 x 1.5 cm and has gradually increased in size since the prior ultrasound of 01/31/2016, at which time the maximum diameter was 1 cm. IMPRESSION: BIRADS/ACR category 2, benign. There is a benign simple cyst at 11 o'clock left breast. It has slowly increased in size since the prior study in 2016. RECOMMENDATION: Recommend follow-up mammogram in 1 year. <Electronically signed by Jean Price > 04/15/21 [id number]
== END ==
LOC: M WHC 14:55
PROVIDERS: ATTEND Physician Assistant Medical
DX: N60.02 Solitary cyst of left breast (principal)

== ENCOUNTER → 2021-11-02 | Outpatient (REF) | payer MEDICARE ==
[~2021-11-02] MED LIST changes: -D31000TA2 PO; +VITA100093 PO
[2021-11-02 13:36] LABS: BASO # 0.1 10^3/uL (0.0-0.2); EOS # 0.2 10^3/uL (0.0-0.5); EOS % 2.5 % (0.0-3.0); HEMATOCRIT 42.8 % (36.0-47.0); HEMOGLOBIN 13.4 g/dl (12.0-15.5); LYMPH # 1.1 10^3/uL (1.5-5.0); LYMPH % 18.3 % (24.0-44.0); MEAN CORPUSCULAR HEMOGLOBIN 28.5 pg (27.0-33.0); MEAN CORPUSCULAR HGB CONC 31.3 g/dl (32.0-36.5); MEAN CORPUSCULAR VOLUME 90.9 fl (80.0-96.0); MONO # 0.5 10^3/uL (0.0-0.8); MONO % 8.4 % (2.0-8.0); NEUTROPHILS # 4.2 10^3/uL (1.5-8.5); NEUTROPHILS % 69.5 % (36.0-66.0); PLATELET COUNT, AUTOMATED 267 10^3/uL (150-450); RED BLOOD COUNT 4.71 10^6/uL (4.00-5.40); WHITE BLOOD COUNT 6.1 10^3/uL (4.0-10.0)
[2021-11-02 13:59] LABS: ALBUMIN 3.7 GM/DL (3.2-5.2); ALT/SGPT 28 U/L (12-78); BILIRUBIN,TOTAL 0.4 MG/DL (0.2-1.0); BLOOD UREA NITROGEN 9 MG/DL (7-18); CALCIUM LEVEL 10.1 MG/DL (8.8-10.2); CARBON DIOXIDE LEVEL 31 MEQ/L (21-32); CHLORIDE LEVEL 107 MEQ/L (98-107); CHOLESTEROL LEVEL 171 MG/DL (<200); CHOLESTEROL RISK RATIO 4.071 (<5); CREATININE FOR GFR 0.67 MG/DL (0.55-1.30); GLOMERULAR FILTRATION RATE > 60.0 (>39); GLUCOSE, FASTING 119 MG/DL (70-100); HDL CHOLESTEROL 42 MG/DL (>40); LDL CHOLESTEROL 97 MG/DL (<100); NON-HDL-C 129 MG/DL; POTASSIUM SERUM 4.2 MEQ/L (3.5-5.1); SODIUM LEVEL 145 MEQ/L (136-145); TOTAL 25(OH) VITAMIN D 33.2 NG/ML (30.0-100.0); TOTAL PROTEIN 6.4 GM/DL (6.4-8.2); TRIGLYCERIDES LEVEL 158 MG/DL (<150)
[2021-11-02 16:46] LABS: MALB URINE SIEMENS 14.5 MG/L; MAU/CREAT RATIO 11.2 MCG/MG (0.0-30.0)
== END ==
LOC: M SFHCADAM 09:36
PROVIDERS: ATTEND Physician Assistant Medical
DX: E66.01 Morbid (severe) obesity due to excess calories (principal); E78.5 Hyperlipidemia, unspecified; R73.03 Prediabetes

== ENCOUNTER → 2021-12-14 | Outpatient (REF) | payer MEDICARE | LOC: M SFHCADAM 12:50 | PROVIDERS: ATTEND Family Medicine | DX: R05.9 Cough, unspecified (principal) ==

== ENCOUNTER → 2022-11-06 | Outpatient (REF) | payer MEDICARE ==
[2022-11-06 15:26] LABS: BASO # 0.1 10^3/uL (0.0-0.2); BASO % 1.2 % (0.0-1.0); EOS # 0.2 10^3/uL (0.0-0.5); EOS % 3.3 % (0.0-3.0); HEMATOCRIT 41.6 % (36.0-47.0); HEMOGLOBIN 12.7 g/dl (12.0-15.5); LYMPH # 1.4 10^3/uL (1.5-5.0); MEAN CORPUSCULAR HEMOGLOBIN 27.9 pg (27.0-33.0); MEAN CORPUSCULAR HGB CONC 30.5 g/dl (32.0-36.5); MEAN CORPUSCULAR VOLUME 91.4 fl (80.0-96.0); MONO # 0.7 10^3/uL (0.0-0.8); NEUTROPHILS # 3.7 10^3/uL (1.5-8.5); NEUTROPHILS % 61.2 % (36.0-66.0); PLATELET COUNT, AUTOMATED 271 10^3/uL (150-450); RED BLOOD COUNT 4.55 10^6/uL (4.00-5.40)
[2022-11-06 15:55] LABS: ALBUMIN 3.7 G/DL (3.2-5.2); ALKALINE PHOSPHATASE 120 U/L (46-116); ALT/SGPT 13 U/L (7.0-40); AST/SGOT 18 U/L (<34); BILIRUBIN,TOTAL 0.3 MG/DL (0.3-1.2); BLOOD UREA NITROGEN 17 MG/DL (9-23); CALCIUM LEVEL 9.4 MG/DL (8.3-10.6); CARBON DIOXIDE LEVEL 27 MMOL/L (20-31); CHLORIDE LEVEL 106 MMOL/L (98-107); CHOLESTEROL LEVEL 210 MG/DL (<200); CHOLESTEROL RISK RATIO 4.38 (<5); CREATININE FOR GFR 0.79 MG/DL (0.55-1.30); GLOMERULAR FILTRATION RATE > 60.0 (>39); GLUCOSE, FASTING 109 MG/DL (74-106); HDL CHOLESTEROL 47.9 MG/DL (>40); LDL CHOLESTEROL 133.1 MG/DL (<100); NON-HDL-C 162.1 MG/DL; POTASSIUM SERUM 5.2 MMOL/L (3.5-5.1); SODIUM LEVEL 142 MMOL/L (136-145); THYROID STIMULATING HORMONE 1.527 uIU/ML (0.55-4.78); TOTAL PROTEIN 6.1 G/DL (5.7-8.2); TRIGLYCERIDES LEVEL 145 MG/DL (<150)
== END ==
LOC: M SFHCADAM 08:05
PROVIDERS: ATTEND Physician Assistant Medical
DX: E78.5 Hyperlipidemia, unspecified (principal); E66.01 Morbid (severe) obesity due to excess calories; R73.03 Prediabetes; M81.0 Age-related osteoporosis without current pathological fracture

== ENCOUNTER → 2022-11-22 | Outpatient (CLI) | payer MEDICARE | LOC: M WHC 12:26 | PROVIDERS: ATTEND Physician Assistant Medical | DX: Z12.31 Encounter for screening mammogram for malignant neoplasm of breast (principal) ==

== ENCOUNTER → 2023-04-24 | Outpatient (REF) | payer MEDICARE ==
[2023-04-24 16:55] LABS: BASO # 0.1 10^3/uL (0.0-0.2); BASO % 0.7 % (0.0-1.0); EOS # 0.2 10^3/uL (0.0-0.5); EOS % 1.9 % (0.0-3.0); HEMATOCRIT 43.7 % (36.0-47.0); LYMPH # 1.7 10^3/uL (1.5-5.0); MEAN CORPUSCULAR HEMOGLOBIN 29.2 pg (27.0-33.0); MONO # 0.8 10^3/uL (0.0-0.8); MONO % 9.9 % (2.0-8.0); NEUTROPHILS # 5.7 10^3/uL (1.5-8.5); NEUTROPHILS % 67.3 % (36.0-66.0); PLATELET COUNT, AUTOMATED 288 10^3/uL (150-450); WHITE BLOOD COUNT 8.5 10^3/uL (4.0-10.0)
[2023-04-24 16:58] LABS: BLOOD UREA NITROGEN 14 MG/DL (9-23); CALCIUM LEVEL 9.5 MG/DL (8.3-10.6); CARBON DIOXIDE LEVEL 31 MMOL/L (20-31); CHLORIDE LEVEL 104 MMOL/L (98-107); CREATININE FOR GFR 0.78 MG/DL (0.55-1.30); GLOMERULAR FILTRATION RATE > 60.0 (>39); GLUCOSE, FASTING 97 MG/DL (74-106); POTASSIUM SERUM 4.5 MMOL/L (3.5-5.1); SODIUM LEVEL 141 MMOL/L (136-145)
[2023-04-24 17:39] LABS: INR 1.06; PROTHROMBIN TIME 13.5 SECONDS (12.5-14.5)
[2023-04-24 17:40] LABS: PARTIAL THROMBOPLASTIN TIME 29.5 SECONDS (24.8-34.2)
== END ==
LOC: M SFHCADAM 14:43
PROVIDERS: ATTEND Physician Assistant Medical
DX: Z01.818 Encounter for other preprocedural examination (principal); M17.32 Unilateral post-traumatic osteoarthritis, left knee

== ENCOUNTER → 2023-11-01 | Outpatient (REF) | payer MEDICARE ==
[2023-11-01 13:58] LABS: BASO # 0.1 10^3/uL (0.0-0.2); EOS # 0.3 10^3/uL (0.0-0.5); EOS % 4.2 % (0.0-3.0); HEMATOCRIT 41.9 % (36.0-47.0); HEMOGLOBIN 13.4 g/dl (12.0-15.5); LYMPH # 1.3 10^3/uL (1.5-5.0); LYMPH % 18.8 % (24.0-44.0); MEAN CORPUSCULAR HEMOGLOBIN 29.4 pg (27.0-33.0); MEAN CORPUSCULAR VOLUME 91.9 fl (80.0-96.0); MONO # 0.7 10^3/uL (0.0-0.8); MONO % 9.7 % (2.0-8.0); NEUTROPHILS # 4.6 10^3/uL (1.5-8.5); NEUTROPHILS % 65.7 % (36.0-66.0); PLATELET COUNT, AUTOMATED 245 10^3/uL (150-450); RED BLOOD COUNT 4.56 10^6/uL (4.00-5.40); WHITE BLOOD COUNT 6.9 10^3/uL (4.0-10.0)
[2023-11-01 14:00] LABS: ALBUMIN 3.6 G/DL (3.2-5.2); ALKALINE PHOSPHATASE 129 U/L (46-116); ALT/SGPT 19 U/L (7.0-40); AST/SGOT 12 U/L (<34); BILIRUBIN,TOTAL 0.6 MG/DL (0.3-1.2); BLOOD UREA NITROGEN 17 MG/DL (9-23); CALCIUM LEVEL 9.6 MG/DL (8.3-10.6); CARBON DIOXIDE LEVEL 28 MMOL/L (20-31); CHLORIDE LEVEL 104 MMOL/L (98-107); CHOLESTEROL LEVEL 199 MG/DL (<200); CHOLESTEROL RISK RATIO 3.87 (<5); GLOMERULAR FILTRATION RATE > 60.0 (>39); GLUCOSE, FASTING 114 MG/DL (74-106); HDL CHOLESTEROL 51.4 MG/DL (>40); LDL CHOLESTEROL 108.4 MG/DL (<100); NON-HDL-C 147.6 MG/DL; POTASSIUM SERUM 4.3 MMOL/L (3.5-5.1); SODIUM LEVEL 141 MMOL/L (136-145); TOTAL PROTEIN 6.3 G/DL (5.7-8.2); TRIGLYCERIDES LEVEL 196 MG/DL (<150)
[2023-11-01 14:02] LABS: TOTAL 25(OH) VITAMIN D 36.8 NG/ML (20.0-100.0)
[2023-11-01 14:17] LABS: HEMOGLOBIN A1c 5.5 % (4.0-6.0)
[2023-11-01 14:18] LABS: CREATININE, URINE 150.7 MG/DL; MAU/CREAT RATIO 3.9 MCG/MG (0.0-30.0)
== END ==
LOC: M SFHCADAM 09:44
PROVIDERS: ATTEND Physician Assistant Medical
DX: E78.5 Hyperlipidemia, unspecified (principal); M81.0 Age-related osteoporosis without current pathological fracture; E66.01 Morbid (severe) obesity due to excess calories; R73.03 Prediabetes

== ENCOUNTER → 2023-11-28 | Outpatient (CLI) | payer MEDICARE | LOC: M WHC 12:10 | PROVIDERS: ATTEND Physician Assistant Medical | DX: Z12.31 Encounter for screening mammogram for malignant neoplasm of breast (principal); R92.323 Mammographic fibroglandular density, bilateral breasts ==

== ENCOUNTER 2023-12-12 07:21 | Day surgery (SDC) | payer MEDICARE ==
[~2023-12-12] VITALS: Ht 157.5 cm; Wt 87.4 kg
[~2023-12-12 07:21] MED LIST changes: +ALPH600C PO; +ASPI81TA26 PO; +CVS-161 PO
[2023-12-12] MEDS: NS 1,000 ML IV ONE (07:48)
[2023-12-12 09:37] VITALS: TEMP 97.3
[2023-12-12 09:54] VITALS: BP 141/67; O2SAT 97
== END 2023-12-12 09:59 | disposition home or self-care (01) ==
LOC: M OPP 07:21
PROVIDERS: ATTEND Internal Medicine Gastroenterology
DX: Z12.11 Encounter for screening for malignant neoplasm of colon (principal); Z80.0 Family history of malignant neoplasm of digestive organs; Z86.010 Personal history of colon polyps; K64.0 First degree hemorrhoids; K57.30 Diverticulosis of large intestine without perforation or abscess without bleeding; K22.89 Other specified disease of esophagus; K31.A19 Gastric intestinal metaplasia without dysplasia, unspecified site; Z87.891 Personal history of nicotine dependence; Q24.9 Congenital malformation of heart, unspecified; Z79.02 Long term (current) use of antithrombotics/antiplatelets; Z79.82 Long term (current) use of aspirin
CPT/HCPCS: 43239; 88305; G0105

== ENCOUNTER 2024-01-31 14:18 | Observation (INO) | payer MEDICARE ==
[~2024-01-31] VITALS: Ht 157.5 cm; Wt 95.5 kg
[2024-01-31] MEDS: ACETAMINOPHEN *IV* 1,000 MG in IV 1 EA IV ONE (19:52)
[2024-01-31] MEDS: fentaNYL 100 MCG/2 ML INJECTION IV ONE (20:33)
[2024-01-31] MEDS ORDERED: MAALOX 30 ML SUSP *UDC PO PRN (22:10)
[2024-01-31] MEDS ORDERED: ALPH200C6 PO (22:50)
[2024-01-31] MEDS ORDERED: HOME MED LIST COMPLETE! XX SCH (22:50)
[2024-01-31 23:16] LABS: BASO # 0.1 10^3/uL (0.0-0.2); BASO % 0.5 % (0.0-1.0); EOS # 0.1 10^3/uL (0.0-0.5); EOS % 0.5 % (0.0-3.0); HEMOGLOBIN 12.7 g/dl (12.0-15.5); LYMPH # 0.8 10^3/uL (1.5-5.0); LYMPH % 7.4 % (24.0-44.0); MEAN CORPUSCULAR HEMOGLOBIN 30.4 pg (27.0-33.0); MEAN CORPUSCULAR HGB CONC 32.6 g/dl (32.0-36.5); MEAN CORPUSCULAR VOLUME 93.3 fl (80.0-96.0); MONO # 0.9 10^3/uL (0.0-0.8); MONO % 8.8 % (2.0-8.0); NEUTROPHILS # 8.6 10^3/uL (1.5-8.5); NEUTROPHILS % 82.4 % (36.0-66.0); PLATELET COUNT, AUTOMATED 270 10^3/uL (150-450); RED BLOOD COUNT 4.18 10^6/uL (4.00-5.40); WHITE BLOOD COUNT 10.4 10^3/uL (4.0-10.0)
[2024-01-31 23:43] LABS: INR 1.01; PARTIAL THROMBOPLASTIN TIME 25.2 SECONDS (24.8-34.2)
[2024-01-31 23:47] LABS: ALBUMIN 3.8 G/DL (3.2-5.2); ALKALINE PHOSPHATASE 131 U/L (46-116); ALT/SGPT 25 U/L (7.0-40); AST/SGOT 16 U/L (<34); BILIRUBIN,TOTAL 0.6 MG/DL (0.3-1.2); BLOOD UREA NITROGEN 16 MG/DL (9-23); CALCIUM LEVEL 9.4 MG/DL (8.3-10.6); CARBON DIOXIDE LEVEL 27 MMOL/L (20-31); CHLORIDE LEVEL 107 MMOL/L (98-107); CREATININE FOR GFR 0.75 MG/DL (0.55-1.30); GLOMERULAR FILTRATION RATE > 60.0 (>39); GLUCOSE, FASTING 139 MG/DL (74-106); POTASSIUM SERUM 4.4 MMOL/L (3.5-5.1); SODIUM LEVEL 139 MMOL/L (136-145); TOTAL PROTEIN 6.1 G/DL (5.7-8.2)
[2024-02-01 00:21] LABS: HEMOGLOBIN A1c 5.6 % (4.0-6.0)
[2024-02-01 01:30] VITALS: BP 151/76; TEMP 98.1; O2SAT 95
[2024-02-01] MEDS: MORPHINE 2 MG/ML 1ML VIAL IV PRN ×2 (02:37→09:46)
[2024-02-01 04:00] VITALS: BP 132/67; TEMP 97.7
[2024-02-01] MEDS: ACETAMINOPHEN TAB 650MG DOSE (2X325MG) PO PRN (04:56)
[2024-02-01 06:52] LABS: HEMATOCRIT 36.4 % (36.0-47.0); HEMOGLOBIN 11.8 g/dl (12.0-15.5); MEAN CORPUSCULAR HEMOGLOBIN 30.3 pg (27.0-33.0); MEAN CORPUSCULAR HGB CONC 32.4 g/dl (32.0-36.5); MEAN CORPUSCULAR VOLUME 93.6 fl (80.0-96.0); PLATELET COUNT, AUTOMATED 234 10^3/uL (150-450); RED BLOOD COUNT 3.89 10^6/uL (4.00-5.40); WHITE BLOOD COUNT 7.6 10^3/uL (4.0-10.0)
[2024-02-01 07:09] LABS: ALBUMIN 3.5 G/DL (3.2-5.2); ALKALINE PHOSPHATASE 120 U/L (46-116); ALT/SGPT 21 U/L (7.0-40); AST/SGOT 12 U/L (<34); BILIRUBIN,TOTAL 0.6 MG/DL (0.3-1.2); BLOOD UREA NITROGEN 15 MG/DL (9-23); CALCIUM LEVEL 9.1 MG/DL (8.3-10.6); CARBON DIOXIDE LEVEL 27 MMOL/L (20-31); CHLORIDE LEVEL 108 MMOL/L (98-107); CREATININE FOR GFR 0.68 MG/DL (0.55-1.30); GLOMERULAR FILTRATION RATE > 60.0 (>39); GLUCOSE, FASTING 113 MG/DL (74-106); POTASSIUM SERUM 4.2 MMOL/L (3.5-5.1); SODIUM LEVEL 140 MMOL/L (136-145); TOTAL PROTEIN 5.6 G/DL (5.7-8.2)
[2024-02-01] MEDS: DOCUSATE SODIUM 100MG CAPSULE PO SCH (08:36)
[2024-02-01 12:00] VITALS: BP 143/77; TEMP 97; O2SAT 97
[2024-02-01 20:32] VITALS: BP 155/78; TEMP 98.1; O2SAT 97
[2024-02-02] VITALS (7 sets, daily range): BP systolic 100–155; BP diastolic 53–78; TEMP 97.2–97.7; O2SAT 94–96
[2024-02-02] MEDS: METHOCARBAMOL 1,000 MG/10 ML VIAL IV ONE (02:50)
[2024-02-02] MEDS: KETOROLAC 30 MG/ML 1ML VIAL IV ONE (03:52)
[2024-02-02] MEDS: MOM 30ML SUSPENSION UDC PO PRN (08:26)
[2024-02-02 09:04] LABS: BASO # 0.1 10^3/uL (0.0-0.2); BASO % 0.7 % (0.0-1.0); EOS # 0.2 10^3/uL (0.0-0.5); EOS % 3.2 % (0.0-3.0); HEMATOCRIT 37.4 % (36.0-47.0); LYMPH # 1.2 10^3/uL (1.5-5.0); LYMPH % 17.7 % (24.0-44.0); MEAN CORPUSCULAR HEMOGLOBIN 30.5 pg (27.0-33.0); MEAN CORPUSCULAR HGB CONC 32.1 g/dl (32.0-36.5); MEAN CORPUSCULAR VOLUME 94.9 fl (80.0-96.0); MONO # 0.8 10^3/uL (0.0-0.8); MONO % 11.8 % (2.0-8.0); NEUTROPHILS # 4.5 10^3/uL (1.5-8.5); NEUTROPHILS % 66.3 % (36.0-66.0); PLATELET COUNT, AUTOMATED 230 10^3/uL (150-450); RED BLOOD COUNT 3.94 10^6/uL (4.00-5.40); WHITE BLOOD COUNT 6.8 10^3/uL (4.0-10.0)
[2024-02-02 09:24] LABS: BLOOD UREA NITROGEN 17 MG/DL (9-23); CARBON DIOXIDE LEVEL 28 MMOL/L (20-31); CHLORIDE LEVEL 107 MMOL/L (98-107); CREATININE FOR GFR 0.74 MG/DL (0.55-1.30); GLOMERULAR FILTRATION RATE > 60.0 (>39); GLUCOSE, FASTING 115 MG/DL (74-106); MAGNESIUM LEVEL 2.1 MG/DL (1.8-2.4); POTASSIUM SERUM 4.1 MMOL/L (3.5-5.1); SODIUM LEVEL 139 MMOL/L (136-145)
[2024-02-02] MEDS ORDERED: LIDOCAINE 2% 100MG/5ML SDV (FOR ANES.) As Ordered ONE (14:33)
[2024-02-02] MEDS ORDERED: propofoL 200 MG/20 ML VIAL As Ordered ONE (14:33)
[2024-02-02] MEDS ORDERED: fentaNYL 100 MCG/2 ML INJECTION As Ordered ONE (14:33)
[2024-02-02] MEDS ORDERED: ONDANSETRON 4MG 2ML VIAL As Ordered ONE (14:33)
[2024-02-02] MEDS ORDERED: MIDAZOLAM INJ 2MG/2ML VIAL As Ordered ONE (14:33)
[2024-02-02] MEDS: ceFAZolin 2 GM/D5W 50 ML IV BAG As Ordered ONE (15:46)
[2024-02-02] MEDS ORDERED: ACETAMINOPHEN 1000MG 100ML IV BAG As Ordered ONE (15:54)
[2024-02-02] MEDS: TRANEXAMIC ACID 100 MG/ML 10ML VIAL As Ordered ONE (15:54)
[2024-02-02] MEDS ORDERED: KETOROLAC 60MG 2ML VIAL As Ordered ONE (15:55)
[2024-02-02] MEDS ORDERED: HYDROmorphone HCL 2MG/ML 1ML VIAL As Ordered ONE (16:18)
[2024-02-02] MEDS ORDERED: ESMOLOL INJ 100MG/10ML VIAL As Ordered ONE (17:39)
[2024-02-02] MEDS: VANCOMYCIN 1000MG/20ML VIAL As Ordered ONE (18:07)
[2024-02-02] MEDS ORDERED: ONDANSETRON 4MG 2ML VIAL IV PRN (18:40)
[2024-02-02] MEDS ORDERED: diphenhydrAMINE 50MG/ML VIAL IV PRN (18:40)
[2024-02-02] MEDS ORDERED: HYDROMORPHONE HCL 0.5 MG/ 0.5 ML SYRINGE IV PRN (18:40)
[2024-02-02] MEDS ORDERED: oxyCODONE 5MG TAB PO PRN (18:40)
[2024-02-02] MEDS: LR 1,000 ML IV SCH (18:40)
[2024-02-02] MEDS ORDERED: METOCLOPRAMIDE INJ 10MG/2ML VIAL IV PRN (18:40)
[2024-02-02] MEDS ORDERED: MEPERIDINE 25 MG/ML 1ML VIAL IV PRN (18:40)
[2024-02-02] MEDS ORDERED: fentaNYL 100 MCG/2 ML INJECTION IV PRN (18:40)
[2024-02-02] MEDS ORDERED: LR 1,000 ML IV SCH (20:00)
[2024-02-02] MEDS: ONDANSETRON 4MG ORAL DISINTEGRATING TAB PO PRN (21:32)
[2024-02-03 05:05] VITALS: TEMP 97.7; O2SAT 98
[2024-02-03 05:29] VITALS: BP 129/76; O2SAT 96
[2024-02-03 07:04] LABS: BASO % 0.1 % (0.0-1.0); HEMOGLOBIN 11.2 g/dl (12.0-15.5); LYMPH # 0.5 10^3/uL (1.5-5.0); LYMPH % 6.2 % (24.0-44.0); MEAN CORPUSCULAR HEMOGLOBIN 30.2 pg (27.0-33.0); MEAN CORPUSCULAR VOLUME 94.3 fl (80.0-96.0); MONO # 0.5 10^3/uL (0.0-0.8); NEUTROPHILS # 6.6 10^3/uL (1.5-8.5); NEUTROPHILS % 87.2 % (36.0-66.0); PLATELET COUNT, AUTOMATED 231 10^3/uL (150-450); RED BLOOD COUNT 3.71 10^6/uL (4.00-5.40); WHITE BLOOD COUNT 7.6 10^3/uL (4.0-10.0)
[2024-02-03] MEDS: ASPIRIN 81MG ENTERIC TABLET PO SCH (07:27)
[2024-02-03 07:35] LABS: BLOOD UREA NITROGEN 18 MG/DL (9-23); CALCIUM LEVEL 9.3 MG/DL (8.3-10.6); CARBON DIOXIDE LEVEL 29 MMOL/L (20-31); CHLORIDE LEVEL 105 MMOL/L (98-107); CREATININE FOR GFR 0.65 MG/DL (0.55-1.30); GLOMERULAR FILTRATION RATE > 60.0 (>39); GLUCOSE, FASTING 138 MG/DL (74-106); MAGNESIUM LEVEL 2.4 MG/DL (1.8-2.4); POTASSIUM SERUM 4.3 MMOL/L (3.5-5.1); SODIUM LEVEL 140 MMOL/L (136-145)
[2024-02-03] MEDS ORDERED: ASPIRIN 81MG ENTERIC TABLET PO SCH (09:00)
[2024-02-03] MEDS: PERCOCET 5MG/325MG TAB PO PRN ×2 (11:32→21:57)
[2024-02-03 12:00] VITALS: BP 133/66; TEMP 98.6; O2SAT 94
[2024-02-03 20:00] VITALS: BP 142/71; TEMP 98.1; O2SAT 92
[2024-02-04 04:09] VITALS: BP 108/62; TEMP 97.5; O2SAT 91
[2024-02-04 06:40] LABS: BASO # 0.1 10^3/uL (0.0-0.2); BASO % 0.8 % (0.0-1.0); EOS # 0.1 10^3/uL (0.0-0.5); EOS % 2.3 % (0.0-3.0); HEMATOCRIT 32.5 % (36.0-47.0); HEMOGLOBIN 10.2 g/dl (12.0-15.5); LYMPH # 1.4 10^3/uL (1.5-5.0); LYMPH % 21.9 % (24.0-44.0); MEAN CORPUSCULAR HGB CONC 31.4 g/dl (32.0-36.5); MEAN CORPUSCULAR VOLUME 95.6 fl (80.0-96.0); MONO # 0.7 10^3/uL (0.0-0.8); MONO % 10.8 % (2.0-8.0); NEUTROPHILS % 63.9 % (36.0-66.0); PLATELET COUNT, AUTOMATED 211 10^3/uL (150-450); WHITE BLOOD COUNT 6.2 10^3/uL (4.0-10.0)
[2024-02-04 07:04] LABS: BLOOD UREA NITROGEN 21 MG/DL (9-23); CALCIUM LEVEL 8.5 MG/DL (8.3-10.6); CARBON DIOXIDE LEVEL 31 MMOL/L (20-31); CHLORIDE LEVEL 109 MMOL/L (98-107); GLOMERULAR FILTRATION RATE > 60.0 (>39); GLUCOSE, FASTING 107 MG/DL (74-106); MAGNESIUM LEVEL 2.2 MG/DL (1.8-2.4); POTASSIUM SERUM 4.3 MMOL/L (3.5-5.1); SODIUM LEVEL 142 MMOL/L (136-145)
[2024-02-04] MEDS ORDERED: ASPI81TA26 PO (10:23)
[2024-02-04] MEDS ORDERED: PERCOCET PO (10:23)
[2024-02-04 12:00] VITALS: BP 111/76; TEMP 97.2; O2SAT 92
== END 2024-02-04 17:15 | disposition home health service (06) ==
LOC: M ED 14:18 → M ED INP 22:06 → INTOOBSV 22:06 → M MS5PR 02-01 01:20
PROVIDERS: ADMIT Family Medicine; ATTEND Student in an Organized Health Care Education/Training Program
DX: S82.852A Displaced trimalleolar fracture of left lower leg, initial encounter for closed fracture (principal); V48.4XXA Person boarding or alighting a car injured in noncollision transport accident, initial encounter; Y92.89 Other specified places as the place of occurrence of the external cause; Y93.9 Activity, unspecified; Y99.9 Unspecified external cause status; M81.0 Age-related osteoporosis without current pathological fracture; E66.01 Morbid (severe) obesity due to excess calories; E78.5 Hyperlipidemia, unspecified; R73.01 Impaired fasting glucose; M25.562 Pain in left knee; Z79.82 Long term (current) use of aspirin; Z79.899 Other long term (current) drug therapy; Z85.43 Personal history of malignant neoplasm of ovary
CPT/HCPCS: 27822; 36415; 70450; 71045; 72125; 73564; 73610; 73700; 76000; 80048; 80053; 83036; 83735; 85025; 85027; 85610; 85730; 86850; 86900; 86901; 96374; 96375; 96376; 97116; 97161; 97530; 99285; C1713; C9290; G0378; J0131; J0665; J0690; J1100; J1170; J1805; J1885; J2250; J2405; J3010; J3370

== ENCOUNTER → 2024-03-13 | Outpatient (CLI) | payer MEDICARE ==
[~2024-03-13] MED LIST changes: +ALPH200C6 PO; +PERCOCET PO
== END ==
LOC: M SOG 07:29
PROVIDERS: ATTEND Physician Assistant
DX: S82.852D Displaced trimalleolar fracture of left lower leg, subsequent encounter for closed fracture with routine healing (principal); M19.072 Primary osteoarthritis, left ankle and foot

== ENCOUNTER → 2024-04-17 | Outpatient (CLI) | payer MEDICARE | LOC: M SOG 07:29 | PROVIDERS: ATTEND Physician Assistant | DX: S82.852D Displaced trimalleolar fracture of left lower leg, subsequent encounter for closed fracture with routine healing (principal); Y93.9 Activity, unspecified; Y92.9 Unspecified place or not applicable ==

== ENCOUNTER → 2024-05-06 | Outpatient (CLI) | payer MEDICARE | LOC: M WHC 09:08 | PROVIDERS: ATTEND Physician Assistant Medical | DX: M81.0 Age-related osteoporosis without current pathological fracture (principal); M85.89 Other specified disorders of bone density and structure, multiple sites ==

== ENCOUNTER → 2024-07-10 | Outpatient (CLI) | payer MEDICARE | LOC: M SOG 07:54 | PROVIDERS: ATTEND Physician Assistant | DX: S82.852D Displaced trimalleolar fracture of left lower leg, subsequent encounter for closed fracture with routine healing (principal) ==

== ENCOUNTER → 2025-03-05 | Outpatient (CLI) | payer OTHER ==
[~2025-03-05] MED LIST changes: -ALPH600C PO; +ALPH600C2 PO
== END ==
LOC: M SOG 06:49
PROVIDERS: ATTEND Orthopaedic Surgery
DX: M75.31 Calcific tendinitis of right shoulder (principal); M25.511 Pain in right shoulder; Z53.9 Procedure and treatment not carried out, unspecified reason